=== PATIENT | male | born 1995 | race Two or more races ===

== ENCOUNTER 2018-11-17 19:44 | Emergency (ER) | payer MEDICAID ==
[~2018-11-17] VITALS: Ht 175.3 cm; Wt 59.0 kg
== END 2018-11-18 00:01 | disposition left against medical advice (07) ==
LOC: ER 19:44
DX: R10.9 Unspecified abdominal pain (principal); Z53.21 Procedure and treatment not carried out due to patient leaving prior to being seen by health care provider
CPT/HCPCS: 82962

== ENCOUNTER 2022-12-27 20:31 | Emergency (ER) | payer MEDICAID ==
[~2022-12-27] VITALS: Ht 175.3 cm; Wt 65.9 kg
[2022-12-27 21:14] VITALS: BP 160/86
== END 2022-12-28 01:50 | disposition left against medical advice (07) ==
LOC: EDUNIT# 20:31 → EDBD 20:31 → ER 20:31
DX: R10.32 Left lower quadrant pain (principal); R11.2 Nausea with vomiting, unspecified; Z53.21 Procedure and treatment not carried out due to patient leaving prior to being seen by health care provider